=== PATIENT | male | born 1965 | race Caucasian/White ===

== ENCOUNTER 2022-04-15 18:57 | Emergency (ER) | payer OTHER ==
[2022-04-15 19:58] LABS: BASOPHIL 0.5 % (0-2); EOSINOPHIL 2.2 % (0-5); HCT 47.1 % (42.0-52.0); HGB 15.8 g/dl (13.2-18.0); LYMPHOCYTE 14.8 % (15-48); MCH 30.8 pg (25.0-31.0); MCHC 33.5 g/dL (32.0-36.0); MCV 91.8 fL (78.0-100.0); MONOCYTE 6.1 % (0-12); MPV 9.8 fL (6.0-9.5); NEUTROPHIL 76.1 % (41-80); NRBC 0; PLT 207 K/uL (150-400); RBC 5.13 M/uL (4.70-6.00); RDW 12.8 % (11.5-14.0); WBC 12.2 K/uL (4.0-10.5)
[2022-04-15 20:20] LABS: ALBUMIN 3.7 g/dL (3.4-5.0); BILIRUBIN - TOTAL 0.5 mg/dL (0.2-1.0); BUN/CREAT RATIO (CALC) 10.3 RATIO; CREATININE 1.56 mg/dL (0.67-1.17); GLOBULIN (CALCULATION) 3.1 g/dL; POTASSIUM 3.1 mmol/L (3.5-5.1); TOTAL PROTEIN 6.8 g/dL (6.4-8.2)
[2022-04-15] MEDS ORDERED: KEPPRA250 MG PO (22:05)
[2022-04-15] MEDS ORDERED: NORCO 5-325 TA1 EACH PO (22:06)
[2022-04-15] MEDS ORDERED: AMOX TR-K CLV1 EAC4 PO (22:17)
== END 2022-04-15 22:47 | disposition home or self-care (01) ==
LOC: FER 18:57
PROVIDERS: Emergency Medicine
DX: G40.909 Epilepsy, unspecified, not intractable, without status epilepticus (principal); S01.112A Laceration without foreign body of left eyelid and periocular area, initial encounter; I10 Essential (primary) hypertension; Z28.310 Unvaccinated for COVID-19; Z86.73 Personal history of transient ischemic attack (TIA), and cerebral infarction without residual deficits; W19.XXXA Unspecified fall, initial encounter
CPT/HCPCS: 36415; 70450; 70486; 80053; 84484; 85025; 93005; 96374; J7030